=== PATIENT | male | born 1975 | race Caucasian/White ===

== ENCOUNTER → 2020-12-07 | Outpatient (CLI) | payer OTHER ==
--- NOTE | 2020-12-08 08:22 | XR ---
Skull Limited HISTORY: Pre-MRI, history of metallic foreign body from cutting, grinding metal, rule out foreign bod y Frontal lateral views of the skull submitted No radiopaque foreign body is evident. Bone mineralization is normal. IMPRESSION: No radiopaque foreign body evident
== END ==
LOC: LABWHC1 11:57
PROVIDERS: ATTEND Orthopaedic Surgery Sports Medicine
DX: Z18.10 Retained metal fragments, unspecified (principal)
CPT/HCPCS: 70250

== ENCOUNTER → 2020-12-09 | Outpatient (CLI) | payer OTHER ==
--- NOTE | 2020-12-10 04:29 | MR ---
EXAMINATION TYPE: MR shoulder LT wo con DATE OF EXAM: 12/09/2020 COMPARISON: None HISTORY: Left shoulder pain and limited range of motion for years. Multiplanar multiecho imaging of the left shoulder was performed without contrast. The biceps tendon is intact. Glenoid susy appear intact. Subscapularis tendon is intact. There is mi ld spurring at the AC joint and mild subacromial impingement. There is small full-thickness defect in the supraspinatus tendon at the attachment on the greater tub erosity of the humerus. There is no retraction of the tendon. Humeral head is intact. There is no noel dence for fracture. There is fluid collection anterior to the subscapularis tendon. IMPRESSION: Small full-thickness tear of the supraspinatus tendon at the attachment on the greater tuberosity. There is 2.8 x 2 cm fluid collection anterior to the subscapularis tendon consistent with synovial cy st.
== END | disposition home or self-care (01) ==
LOC: RADMRIMAIN 19:10
PROVIDERS: ATTEND Orthopaedic Surgery Sports Medicine
DX: S46.012A Strain of muscle(s) and tendon(s) of the rotator cuff of left shoulder, initial encounter (principal)